=== PATIENT | female | born 1940 | race Caucasian/White ===

== ENCOUNTER 2023-09-15 13:08 | Emergency (ER) | payer OTHER, MEDICARE ==
[2023-09-15 13:23] VITALS: BP 152/93; PULSE 79; RESP 18; TEMP 98.7; BMI 19.5
== END 2023-09-15 14:05 | disposition home or self-care (01) ==
LOC: FER 13:08
DX: T22.221A Burn of second degree of right elbow, initial encounter (principal); X15.3XXA Contact with hot saucepan or skillet, initial encounter
CPT/HCPCS: 99283-25